=== PATIENT | female | born 1970 | race African-American/Black ===

== ENCOUNTER 2018-02-27 13:14 | Emergency (ER) | payer OTHER ==
[2018-02-27 13:24] VITALS: BP 129/81; PULSE 72; TEMP 98.5; BMI 28.7
[2018-02-27] MEDS ORDERED: ACETAMINOPHEN 500 MG TABLET (FP) ONE (14:06)
[2018-02-27] MEDS ORDERED: ACETAMINOPHEN 500 MG TABLET (FP) PO ONE (14:10)
--- NOTE | 2018-02-27 14:16 | PDOC ---
History of Present Illness - General Chief Complaint: Injury Stated Complaint: RT ANKLE, RT FOOT, RT KNEE PAIN Time Seen by Provider: 02/27/18 13:31 - History of Present Illness Initial Comments: 02/27/18 15:58 The patient is a 47 year old female with a significant PMH of NIDDM on metformin who presents to the emergency department after sustaining any injury to the right leg prior to arrival. 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 Patient is complaining of pain to the right foot and knee. Patient denies any right hip pain. Did not fall. Patient was able to ambulate with a limp after the injury. Denies other injuries, no head strike. Patient denies any surgeries in the past. Patient denies possible . Denies weakness or numbness in the RLE. The patient denies any fever chills, cough, wheezing, palpitations, PND, orthopnea. She denies nausea vomiting, chest pain SOB, abdominal pain, diarrhea , constipation, urinary complaints, weakness, lightheadedness, sensory changes. The patient denies any other complaints. Past History - Past Medical History Allergies/Adverse Reactions: Allergies Allergy/AdvReac Type Severity Reaction Status Date / Time No Known Allergies Allergy Verified 02/27/18 13:18 Home Medications: Ambulatory Orders Metformin HCl [Metformin HCl ER] 1,000 mg PO DAILY 02/27/18 Sitagliptin Phosphate [Januvia -] mg PO DAILY@0700 02/27/18 COPD: No Diabetes: Yes - Suicide/Smoking/Psychosocial Hx Smoking History: Never smoked Have you smoked in the past 12 months: No Information on smoking cessation initiated: No Hx Alcohol Use: (occasional) Review of Systems - Review of Systems Comments:: 02/27/18 16:00 GENERAL/CONSTITUTIONAL: No fever or chills. No weakness. HEAD, EYES, EARS, NOSE AND THROAT: No change in vision. No ear pain or discharge. No sore throat. GASTROINTESTINAL: No nausea, vomiting, diarrhea or constipation. GENITOURINARY: No dysuria, frequency, or change in urination. CARDIOVASCULAR: No chest pain or shortness of breath. RESPIRATORY: No cough, wheezing, or hemoptysis. MUSCULOSKELETAL: (+) Right knee and right foot pain. No muscle swelling or pain. No neck or back pain. SKIN: No rash NEUROLOGIC: No headache, vertigo, loss of consciousness, or change in strength/ sensation. ENDOCRINE: No increased thirst. No abnormal weight change. HEMATOLOGIC/LYMPHATIC: No anemia, easy bleeding, or history of blood clots. ALLERGIC/IMMUNOLOGIC: No hives or skin allergy." *Physical Exam - Vital Signs Last Vital Signs Temp Pulse Resp BP Pulse Ox 98.5 F 72 18 129/81 100 02/27/18 13:14 02/27/18 13:14 02/27/18 13:14 02/27/18 13:14 02/27/18 13:14 - Physical Exam Comments: 02/27/18 16:02 GENERAL: Awake, alert, and fully oriented, in no acute distress HEAD: No signs of trauma EYES: PERRLA, EOMI, sclera anicteric, conjunctiva clear ENT: Nares patent, oropharynx clear without exudates. Moist mucosa LUNGS: Breath sounds equal, clear to auscultation bilaterally. No wheezes, and no crackles HEART: Regular rate and rhythm, normal S1 and S2, no murmurs, rubs or gallops ABDOMEN: Soft, nontender, normoactive bowel sounds. No guarding, no rebound. No masses EXTREMITIES: Normal range of motion, no edema. No clubbing or cyanosis. No cords , erythema (+) Diffuse tenderness to palpation over the left lower extremity from the knee to the L ankle with minimal touch. No deformities. No laxity in the knee, negative lachmans test. R foot with 2+ DP and TP pulses. 5/5 strength in knee flexion/extension, dorsiflexion/plantar flexion of the foot. Normal sensation of RLE. Compartments are soft. BACK: No midline spinal tenderness in cervical/thoracic/lumbar region NEUROLOGICAL: Normal speech, cranial nerves intact, antalgic but steady gait SKIN: Warm, Dry, normal turgor, no rashes or lesions noted. ED Treatment Course - RADIOLOGY Radiology Studies Ordered: Category Date Time Status ANKLE & FOOT-RIGHT* [RAD] Stat Radiology 02/27/18 14:07 Ordered KNEE 3 POS-RIGHT [RAD] Stat Radiology 02/27/18 14:10 Ordered LEG TIB/FIB-RIGHT [RAD] Stat Radiology 02/27/18 14:07 Ordered Medical Decision Making - Medical Decision Making 02/27/18 14:12 47yo F hx NIDDM presents to the ED with R knee and R foot pain after a wheelchair struck her knee, then rolled over her R foot. Pt was ambulatory at the scene and for EMS. Vitals wnl. Exam with ttp diffusely over knee and dorsum of foot but no deformities or evidence of obvious injury. Foot is WWP and she has 2+ DP and TP pulses. MEchanism not concerning for knee dislocation. Tylenol given for pain. Pt states there is no chance she is . Will order films of R knee, tib/fib, and R ankle/foot. 02/27/18 16:11 XR negative, likely bone contusion Persistent pain, toradol given compartments remain soft, remains NVI Feels better Offered crutches for ambulation, declines brenda wrap placed, ambulates w steady gait ortho referral provided requests dc home I discussed the physical exam findings, ancillary test results and final diagnoses with the patient. I answered all of the patient's questions. The patient was satisfied with the care received and felt comfortable with the discharge plan and treatment plan. The patient will call their primary care physician within 24 hours to arrange follow-up and will return to the Emergency Department with any new, persistent or worsening symptoms. *DC/Admit/Observation/Transfer Diagnosis at time of Disposition: Foot injury, Knee pain, acute, Leg pain - Discharge Dispostion Disposition: HOME Condition at time of disposition: Stable Decision to Admit order: No - Referrals Referrals: Siva Farrell MD [Staff Physician] - - Patient Instructions Printed Discharge Instructions: DI for Foot Pain, DI for Knee Pain - Post Discharge Activity Forms/Work/School Notes: Back to Work - Attestations Physician Attestion: 02/27/18 16:22 I, Dr. Shamar Mcqueen MD, attest that this document has been prepared under my direction and personally reviewed by me in its entirety. I further attest, that it accurately reflects all work, treatment, procedures and medical decision -making performed by me.
[2018-02-27] MEDS ORDERED: KETOROLAC TROMETHAMINE 30 MG/1 ML VIAL ONE (16:02)
[2018-02-27] MEDS ORDERED: KETOROLAC TROMETHAMINE 30 MG/1 ML VIAL IM ONE (16:12)
== END 2018-02-27 17:05 | disposition home or self-care (01) ==
LOC: FER 13:14 → EDSEX 13:14 → FER 17:05
PROC: 3E0233Z Introduction of Anti-inflammatory into Muscle, Percutaneous Approach (ICD-10-PCS; principal; 2018-02-27)
DX: M79.604 Pain in right leg (principal); S99.921A Unspecified injury of right foot, initial encounter; M25.561 Pain in right knee; V68.1XXA Passenger in heavy transport vehicle injured in noncollision transport accident in nontraffic accident, initial encounter; Y93.89 Activity, other specified; Y92.410 Unspecified street and highway as the place of occurrence of the external cause; Y99.0 Civilian activity done for income or pay; E11.9 Type 2 diabetes mellitus without complications
CPT/HCPCS: 73562-TC-RT-FY; 73590-TC-RT-FY; 73610-TC-RT-FY; 73630-TC-RT-FY; 99283-25